=== PATIENT | male | born 1965 | race Caucasian/White ===

== ENCOUNTER 2021-09-29 12:59 | Emergency (ER) | payer OTHER ==
[~2021-09-29] VITALS: Ht 172.7 cm; Wt 108.0 kg
[~2021-09-29 12:59] MED LIST: FLOMAX0.4 MG PO; HYDROCODONE BIT1 T11 PO; MOTRIN800 MG PO; Zofran4 MG PO
[2021-09-29] MEDS ORDERED: PREDNISONE50 MG PO (16:19)
[2021-09-29] MEDS ORDERED: CYCLOBENZAPRINE10 MG PO (16:19)
== END 2021-09-29 16:21 | disposition home or self-care (01) ==
LOC: ED 12:59
DX: S39.012A Strain of muscle, fascia and tendon of lower back, initial encounter (principal); V89.2XXA Person injured in unspecified motor-vehicle accident, traffic, initial encounter; Y93.89 Activity, other specified; Y92.89 Other specified places as the place of occurrence of the external cause; Y99.8 Other external cause status

== ENCOUNTER → 2022-03-23 | Outpatient (CLI) | payer OTHER ==
[~2022-03-23] MED LIST changes: +CYCLOBENZAPRINE10 MG PO; +PREDNISONE50 MG PO
== END | disposition home or self-care (01) ==
LOC: MRI 09:55
PROVIDERS: ATTEND Chiropractor
DX: S39.012A Strain of muscle, fascia and tendon of lower back, initial encounter (principal); X58.XXXA Exposure to other specified factors, initial encounter; Y93.89 Activity, other specified; Y92.89 Other specified places as the place of occurrence of the external cause; Y99.8 Other external cause status

== ENCOUNTER 2022-06-02 08:33 | Emergency (ER) | payer OTHER ==
[~2022-06-02] VITALS: Ht 172.7 cm; Wt 106.6 kg
[2022-06-02] MEDS ORDERED: CYCLOBENZAPRINE10 MG PO (09:04)
[2022-06-02] MEDS ORDERED: PREDNISONE10 MG PO (09:04)
[2022-06-02] MEDS ORDERED: Percocet 325 MG1 TAB PO (09:04)
== END 2022-06-02 09:29 | disposition home or self-care (01) ==
LOC: ED 08:33
DX: M54.50 Low back pain, unspecified (principal); G89.29 Other chronic pain; M54.2 Cervicalgia; M79.604 Pain in right leg; M79.605 Pain in left leg